=== PATIENT | female | born 1990 | race Caucasian/White ===

== ENCOUNTER 2019-02-22 14:39 | Outpatient (CLI) | payer OTHER ==
[~2019-02-22] VITALS: Ht 162.6 cm; Wt 120.9 kg
[~2019-02-22 14:39] MED LIST: PREN-39 PO
[2019-02-22 14:52] VITALS: Ht 162.6 cm; Wt 120.9 kg
--- NOTE | 2019-02-22 19:47 | TRIAGE ---
OB Triage Datetime Report Generated by CPN: 02/22/2019 19:47 Datetime: 02/22/2019 19:15 Stage of : OB Triage Datetime: 02/22/2019 15:07 Maternal Assessment Level of Consciousness: Fully Conscious DTR's/Clonus: DTRs 1+ Headache: Denies Blurred Vision: No Respiratory Effort: Unlabored Breath Sounds, Left: Clear and Equal Breath Sounds, Right: Clear and Equal Nausea/Vomiting: Denies RUQ Epigastric Pain: Denies Facial Edema: None Labor Evaluation Frequency: NONE Monitor Mode: External Resting Tone [place]: Relaxed Heart Rate FHR Baseline Rate: 140 Monitor Mode: External US Variability: Moderate 6-25 bpm Accelerations: 10X10 Decelerations: None Category: Category I Pain Assessment Pain Scale: 0 Pain Presence: None/Denies Pain Type: N/A Pain Goal: 3 Vaginal Exam Membrane Status: Intact Datetime: 02/22/2019 14:47 Assessment Type: Triage Maternal Assessment Level of Consciousness: Fully Conscious DTR's/Clonus: DTRs 2+; No Clonus Headache: Denies Blurred Vision: No Respiratory Effort: Unlabored; Regular Rhythm; Equal Expansion Breath Sounds, Left: Clear and Equal Breath Sounds, Right: Clear and Equal Nausea/Vomiting: Denies RUQ Epigastric Pain: Denies Lower Extremities Edema: None Degree: None Upper Extremities Edema: None Degree: None Facial Edema: None Fall Risk Assessment History of Falling: (0) No Secondary Diagnosis: (0) No Ambulatory Aid: (0) Bedrest/Nurse Assist IV Therapy: (0) No Gait: (0) Normal/Bedrest/Immobile Mental Status: (0) Oriented to Own Ability Fall Score: 0 Fall Risk Score Definition: No Risk: No action required Datetime: 02/22/2019 14:43 Time of Arrival: 02/22/2019 14:43 EGA: 38.0 Arrived By: Ambulatory Arrived From: Office Chief Complaint: PT CAME IN [facility] FOR NST, BPP, AND EFW FOR HIGH KAMALJIT AND GDM Movement: Present Contractions: Denies/Absent Rupture of Membranes: Denies Vaginal Discharge: Denies Recent Sexual Intercouse: Denies Abdominal Trauma: Not Applicable Additional Patient Complaints: NONE Time Provider Notified: 02/22/2019 19:15 Provider Notified: LINDA Initial Plan: NST, BPP, EFW
--- NOTE | 2019-02-22 23:42 | PN ---
Triage Information Date/Time 02/22/19 Reason for visit: Polyhydramnios Weeks of Gestation 38w /Para Diabetes: gestational Diabetes management: diet controlled Additional information random glucose 93 HbA1C 6.1 Objective Heart Rate Comments CAT I Contractions: None Exam VE 2 50/-2 Results/Medications Results 24 hrs Laboratory Tests Test 02/22/19 16:27 02/22/19 16:46 Bedside Glucose 93 Hemoglobin A1c 6.2 H Imaging Results BPP 06/14 KAMALJIT 10.2 EFW 3353gm Disposition: Discharge Assessment/Plan IUP 38w polyhydramnios normal fluid volume Plan discharge home biweekly antepartum test for GDM RTH prn with routine labor instructions MIREYA MCKEON MD Feb 22, 2019 23:42
== END 2019-02-22 19:45 | disposition home or self-care (01) ==
LOC: OBT 14:39 → L-D 14:39 → OBT 19:45
PROVIDERS: ATTEND Obstetrics & Gynecology
DX: O40.3XX0 Polyhydramnios, third trimester, not applicable or unspecified (principal); O24.419 Gestational diabetes mellitus in pregnancy, unspecified control; Z3A.38 38 weeks gestation of pregnancy
CPT/HCPCS: 76815; 76818; 82962; 83036; Z7500; G0463